=== PATIENT | male | born 1960 | race Caucasian/White ===

== ENCOUNTER 2021-11-24 07:12 | Emergency (ER) | payer BC, SELFPAY ==
[2021-11-24 07:17] VITALS: BP 139/73; PULSE 70; RESP 15; TEMP 36.7; O2SAT 97; BMI 27.6
--- NOTE | 2021-11-24 07:24 | ED.GENADULT ---
HPI - General Adult General Chief complaint: Upper Respiratory Symptoms Stated complaint: HARD TO BREATHE, COUGH Time Seen by Provider: 11/24/21 07:18 History of Present Illness HPI narrative: 61-year-old gentleman who lives in [place] and is in town working at the [employer] for the next number of months history of hypertension, hyperlipidemia, BPH, chronic back pain for which he uses tramadol presented with a week of upper respiratory symptoms. Seven days ago he noted as scratchy throat the following day he flew from [place] to [place] and noticed increasing sore throat, fatigue, headache, congestion, now noticing productive cough from his upper lung garza he denies any fevers. He is vaccinated in boosted for COVID and had a rapid test 3 days ago that was negative. He denies any palpitations, vomiting, diarrhea, abdominal pain, skin changes. He states that he is progressively dyspneic with exertional dyspnea which is the main reason that brings him to the emergency department Related Data Previous Rx's Medication Instructions Recorded amoxicillin 500 mg capsule 1,000 mg PO TID 7 Days #42 cap 11/24/21 doxycycline hyclate 100 mg capsule 100 mg PO BID #14 cap 11/24/21 Allergies Allergy/AdvReac Type Severity Reaction Status Date / Time No Known Drug Allergies Allergy Verified 11/24/21 07:33 Review of Systems Review of Systems Narrative: Remainder of complete review of systems is otherwise unremarkable except for that included in the HPI. Patient History Medical History BPH (benign prostatic hyperplasia) Chronic back pain Hyperlipidemia Hypertension Social History Smoking Status: Never smoker Exam Initial Vital Signs Initial Vital Signs: Vital Signs Temperature 98.0 F 11/24/21 07:17 Pulse Rate 70 11/24/21 07:17 Respiratory Rate 15 11/24/21 07:17 Blood Pressure 139/73 11/24/21 07:17 Pulse Oximetry 97 11/24/21 07:17 General: Mildly ill-appearing but in no acute distress. Able to give a complete and coherent history. Well-nourished well-developed HEENT: Moist mucous membranes, mildly injected sclera with reactive pupils, Neck: No JVD, supple Respiratory: Lungs with rhonchi and the right mid axillary line, no wheezing. Full and symmetrical air movement Cardiac: Regular rate and rhythm no murmurs no bruits Abdomen: Soft, nontender, good bowel tones, no flank pain Skin: Warm and dry, no rashes Neurologic: Grossly neurologically intact with no obvious asymmetries or abnormalities Extremities: No trauma, well perfused Psych: Cooperative, appropriate insight and affect Course Orders Ordered: ED Orders 11/24/21 07:30 CBC Auto Diff [Complete Blood Count AUTO DIFF] Stat 11/24/21 07:34 XR chest 1V Stat EKG-12 Lead Stat 11/24/21 07:40 Comprehensive Metabolic Panel Stat NT-proBNP (BNP-Adult 18+) Stat Respiratory Panel (Film Array) Stat Troponin I Stat Vital Signs Vital signs: Vital Signs - 8 hr 11/24/21 07:17 11/24/21 07:47 11/24/21 08:00 Temperature 98.0 F Pulse Rate 70 59 L 61 Respiratory Rate 15 10 L 10 L Blood Pressure 139/73 Pulse Oximetry 97 95 94 11/24/21 08:30 Temperature Pulse Rate 60 Respiratory Rate 10 L Blood Pressure Pulse Oximetry 93 Medical Decision Making Lab Data Result diagrams: 11/24/21 07:30 11/24/21 07:40 Labs: Lab Results 11/24/21 11/24/21 11/24/21 Range/Units 07:30 07:40 07:40 WBC 9.2 (4.5-11.0) X10^3/uL RBC 4.73 (4.5-5.9) X10^6/uL Hgb 14.9 (13.5-17.5) g/dL Hct 41.9 (41-53) % MCV 88.7 (80-100) fL MCH 31.6 (26-34) PG MCHC 35.6 (30-36) % RDW 13.1 (11.6-14.8) % Plt Count 205 (150-400) X10^3/uL Neut % (Auto) 79.3 H (50-75) % Lymph % (Auto) 9.7 L (25-40) % [place] % (Auto) 7.7 (3-14) % Eos % (Auto) 2.8 (2-4) % Baso % (Auto) 0.5 (0-2) % Neut # (Auto) 7300 H (2291-0872) /uL Lymph # (Auto) 900 L (3439-9826) /uL [place] # (Auto) 700 (0-900) /uL Eos # (Auto) 300 (0-450) /uL Baso # (Auto) 0 (0-100) /uL Sodium 137 (137-145) mmol/L Potassium 3.5 (3.4-5.1) mmol/L Chloride 106 (98-107) mmol/L Carbon Dioxide 24 (22-32) mmol/L BUN 14 (9-20) mg/dL Creatinine 1.03 (0.66-1.25) mg/dL Estimated GFR > 60.0 (>60) mL/min BUN/Creatinine Ratio 13.6 (6-22) Glucose 116 H (80-110) mg/dL Calcium 9.4 (8.4-10.2) mg/dL Total Bilirubin 0.7 (0.2-1.3) mg/dL AST 107 H (17-59) IU/L ALT 128 H (<50) IU/L Alkaline Phosphatase 106 (38-126) U/L Troponin I < 0.012 (0.01-0.034) ng/mL NT-Pro-B Natriuret Pep 25 (<125) pg/mL Total Protein 7.3 (6.3-8.2) g/dL Albumin 4.2 (3.5-5.0) g/dL Globulin 3.1 (1.7-4.1) g/dL Albumin/Globulin Ratio 1.4 (1.0-2.8) Chlamy pneumoniae PCR Not detected (Not Detect) Adenovirus (PCR) Not detected (Not Detect) B. pertussis DNA (PCR) Not detected (Not Detecte) B.parapertussis DNA PCR Not detected (Not Detecte) Coronavirus OC43 (PCR) Not detected (Not Detect) Coronavirus HKU1 (PCR) Not detected (Not Detect) Coronavirus 229E (PCR) Not detected (Not Detect) SARS-CoV-2 (PCR) Not detected (Not Detecte) Coronavirus NL63 (PCR) Not detected (Not Detect) Human Metapneumovir PCR Not detected (Not Detect) Influenza Type A (PCR) Not detected (Not Detect) Influenza Type B (PCR) Not detected (Not Detect) M. pneumoniae (PCR) Not detected (Not Detect) Parainfluenza 1 (PCR) Not detected (Not Detect) Parainfluenza 2 (PCR) Not detected (Not Detect) Parainfluenza 3 (PCR) Not detected (Not Detect) Parainfluenza 4 (PCR) Not detected (Not Detect) RSV (PCR) Not detected (Not Detect) Entero/Rhino (PCR) Not detected (Not Detect) Imaging Data Chest x-ray: My Impression: With independent interpretation of film in light of clinical exam I do think that he is developing a right middle lobe infiltrate. Radiologist's Impression: FINDINGS:? ? Surgical changes and devices:? None.? ? Lungs and pleura:? Lungs are clear.? No pleural effusions or pneumothorax.? ? Mediastinum:? Mediastinal contours appear normal.? Heart size is normal.? ? Bones and chest wall:? No suspicious bony lesions.? Overlying soft tissues appear unremarkable.? ? IMPRESSION:? No acute cardiopulmonary disease. ? ? Dictated by: Reed Tran M.D. on 11/24/2021 at 8:22? ?? ECG Data Interpretation: Sinus rhythm at a rate of 60 Normal intervals, normal axis No acute ischemic changes MDM Narrative Medical decision making narrative: 61-year-old gentleman with progressive cough now with productive sputum and rhonchi appreciated in the right mid axillary line consistent with a clinical pneumonia. No evidence of sepsis, no evidence of viral etiology with negative full respiratory panel. No suggestion of congestive heart failure or acute coronary syndrome was complicating factor of his complaints of productive cough. In Light of the clinical findings will be can him on amoxicillin and doxycycline for 7 days. at this time he is safe for home discharge Discharge Plan Departure Patient Disposition: Home Clinical Impression: Bacterial pneumonia Instructions: DI for Pneumonia -- Adult Activity Restrictions/Additional Instructions: Thank you for coming in today I am sorry you are not feeling well. Your lab work was reassuring. You do not have an overwhelming infection. You do not have a viral pneumonia specifically no COVID. There is no evidence of heart attack or heart failure. On clinical exam and based on your productive cough I suspect you have a right-sided bacterial pneumonia. Current recommendations for outpatient treatment of uncomplicated bacterial pneumonia includes 2 antibiotics for 7 days. I have given you a prescription for amoxicillin 1gm 3 times a day as well as doxycycline 100 mg twice a day. If you find that you are getting worse, you do need to return to the emergency department I hope you feel better quickly Prescriptions: New amoxicillin 500 mg capsule 1,000 mg PO TID 7 Days Qty: 42 0RF doxycycline hyclate 100 mg capsule 100 mg PO BID Qty: 14 0RF
--- NOTE | 2021-11-24 07:34 | DI.RAD.S_ITS ---
PROCEDURE: XR CHEST 1V INDICATIONS: Cough TECHNIQUE: One view of the chest was acquired. COMPARISON: None. FINDINGS: Surgical changes and devices: None. Lungs and pleura: Lungs are clear. No pleural effusions or pneumothorax. Mediastinum: Mediastinal contours appear normal. Heart size is normal. Bones and chest wall: No suspicious bony lesions. Overlying soft tissues appear unremarkable. IMPRESSION: No acute cardiopulmonary disease. Dictated by: Reed Tran M.D. on 11/24/2021 at 8:22 Approved by: Reed Tran M.D. on 11/24/2021 at 8:22
[2021-11-24 07:47] VITALS: PULSE 59; RESP 10; O2SAT 95
[2021-11-24 08:00] VITALS: PULSE 61; RESP 10; O2SAT 94
[2021-11-24 08:05] LABS: Alanine Aminotransferase 128 IU/L (<50); Albumin 4.2 g/dL (3.5-5.0); Albumin Globulin Ratio 1.4 (1.0-2.8); Alkaline Phosphatase 106 U/L (38-126); Aspartate Aminotransferase 107 IU/L (17-59); BUN Creatinine Ratio 13.6 (6-22); Bilirubin Total 0.7 mg/dL (0.2-1.3); Blood Urea Nitrogen 14 mg/dL (9-20); Calcium 9.4 mg/dL (8.4-10.2); Carbon Dioxide 24 mmol/L (22-32); Chloride 106 mmol/L (98-107); Estimated Glomerular Filt Rate > 60.0 mL/min (>60); Globulin 3.1 g/dL (1.7-4.1); Glucose 116 mg/dL (80-110); HEMOLYSIS < 15 (0-50); Potassium 3.5 mmol/L (3.4-5.1); Sodium 137 mmol/L (137-145); Total Protein 7.3 g/dL (6.3-8.2)
[2021-11-24 08:17] LABS: NT-proBNP (BNP-Adult 18+) 25 pg/mL (<125); Troponin I < 0.012 ng/mL (0.01-0.034)
[2021-11-24 08:30] VITALS: PULSE 60; RESP 10; O2SAT 93
[2021-11-24 08:30] LABS: Add Manual Diff / Slide Review NO; Basophils Absolute Auto 0 /uL (0-100); Basophils Percent Auto 0.5 % (0-2); Eosinophils Absolute Auto 300 /uL (0-450); Eosinophils Percent Auto 2.8 % (2-4); Hematocrit 41.9 % (41-53); Hemoglobin 14.9 g/dL (13.5-17.5); Lymphocytes Absolute Auto 900 /uL (1100-4500); Lymphocytes Percent Auto 9.7 % (25-40); Mean Corpuscular HGB Conc 35.6 % (30-36); Mean Corpuscular Hemoglobin 31.6 PG (26-34); Mean Corpuscular Volume 88.7 fL (80-100); Monocytes Absolute Auto 700 /uL (0-900); Monocytes Percent Auto 7.7 % (3-14); Neutrophils Absolute Auto 7300 /uL (1500-7000); Neutrophils Percent Auto 79.3 % (50-75); Platelet Count 205 X10^3/uL (150-400); Red Blood Cell Count 4.73 X10^6/uL (4.5-5.9); Red Cell Distribution Width 13.1 % (11.6-14.8); White Blood Cell Count 9.2 X10^3/uL (4.5-11.0)
[2021-11-24 08:47] LABS: Adenovirus Not Detected (Not Detect); B. parapertussis Not Detected (Not Detecte); Bordetella pertussis Not Detected (Not Detecte); Chlamydophila pneumoniae Not Detected (Not Detect); Coronavirus 229E Not Detected (Not Detect); Coronavirus HKU1 Not Detected (Not Detect); Coronavirus NL 63 Not Detected (Not Detect); Coronavirus OC43 Not Detected (Not Detect); Human Metapneumovirus Not Detected (Not Detect); Human Rhinovirus/Enterovirus Not Detected (Not Detect); Influenza A Not Detected (Not Detect); Influenza B Not Detected (Not Detect); Mycoplasma pneumoniae Not Detected (Not Detect); Parainfluenza Virus 1 Not Detected (Not Detect); Parainfluenza Virus 2 Not Detected (Not Detect); Parainfluenza Virus 3 Not Detected (Not Detect); Parainfluenza Virus 4 Not Detected (Not Detect); Respiratory Syncytial Virus Not Detected (Not Detect); SARS- CoV-2 Not Detected (Not Detecte)
== END 2021-11-24 09:14 | disposition home or self-care (01) ==
PROVIDERS: Emergency Provider Emergency Medicine
DX: J15.9 Unspecified bacterial pneumonia (principal)
CPT/HCPCS: 36415; 71045; 80053; 83880; 84484; 85025; 87633; 93005; 99283; 99284